=== PATIENT | female | born 1950 | race Caucasian/White ===

== ENCOUNTER → 2016-09-09 | Outpatient (CLI) | payer OTHER, MEDICARE ==
[~2016-09-09] MED LIST: ACETAMINOPHEN650 M5 PO; ALBUTEROL2.5 MG/0.1 INH; ALBUTEROL2.5 MG/0.5 INH; AMBIEN 5 MG TABL5 M1 PO; AMITIZA 24 MCG24 MC1 PO; BACTRIM DS TAB1 EACH PO; BISACODYL SUPP10 MG RECTAL; CALCIUM 600 +1 EAC1 PO; CELEBREX 200 M200 MG PO; CLEOCIN HCL150 MG PO; COLACE 100 MG100 MG PO; ESZOPICLONE3 MG PO; FUROSEMIDE 20 M20 M1 PO; GLYCOLAX POWDER17 G1 PO; HALCION0.25 MG PO; HYDROCODON-ACE1 EAC5 PO; MELOXICAM15 MG PO; MOM PO; MUCINEX600 MG PO; NABUMETONE 500500 M1 PO; NICOTINE TRANSD21 M1 TRANSDERM; NORVASC5 MG PO; NYSTATIN 1100000 U/M; OMEPRAZOLE40 MG PO; ORPHENADRINE C100 M2 PO; OXYCODONE HCL5 M1 PO; PHENERGAN 25 MG25 M1 PO; PREDNISONE 1 MG1 M1 PO; PREDNISONE 10 M10 M1; PROAIR HFA8.5 GM INH; PROVENTIL INH; RESTORIL30 MG PO; RICOLA1 EAC1 PO; SENOKOT-S1 TA1 PO; SPIRIVA INH; SYMBICORT160 MCG/4. INH; TRAMADOL 50 MG50 MG PO; TUDORZA PRESS400 MCG INH; VICODIN HP 10-1 EAC1 PO; VITAMIN D 5050000 I1 PO; VITAMIN D5000 UNIT PO; ZANAFLEX4 MG PO
== END ==
LOC: MRI 10:08
DX: M16.12 Unilateral primary osteoarthritis, left hip (principal); M25.552 Pain in left hip

== ENCOUNTER → 2016-10-08 | Outpatient (CLI) | payer OTHER, MEDICARE | LOC: BC 05:02 | DX: Z12.31 Encounter for screening mammogram for malignant neoplasm of breast (principal) ==

== ENCOUNTER → 2018-02-17 | Outpatient (CLI) | payer OTHER, MEDICARE | LOC: RAD 10:08 | DX: J44.9 Chronic obstructive pulmonary disease, unspecified (principal); J98.4 Other disorders of lung; J84.9 Interstitial pulmonary disease, unspecified; M81.0 Age-related osteoporosis without current pathological fracture; M19.90 Unspecified osteoarthritis, unspecified site ==

== ENCOUNTER → 2018-03-01 | Outpatient (CLI) | payer OTHER, MEDICARE | LOC: CAT 11:55 | DX: J84.9 Interstitial pulmonary disease, unspecified (principal); M81.0 Age-related osteoporosis without current pathological fracture; J44.9 Chronic obstructive pulmonary disease, unspecified; Z87.891 Personal history of nicotine dependence ==

== ENCOUNTER 2018-06-04 13:52 | Inpatient (IN) | payer OTHER, MEDICARE ==
[~2018-06-04] VITALS: Ht 160 cm; Wt 64.9 kg
[2018-06-04 13:53] VITALS: BP 129/75
--- NOTE | 2018-06-04 14:14 | EKG ---
[address] [address] ELECTROCARDIOGRAM REPORT Name: OG MADDOX Room #: [facility]..#: [id number] Admission: Attend Phys: Discharge: Date of : 54 Report #: [id number] THIS REPORT FOR: //name// [facility] ED Test Date: 2018-06-04 Test Time: 14:07:50 Pat Name: OG MADDOX Department: Room: Gender: F [employer]: : 1950 Requested By: Skylar Kaur Order Number: [id number] MD: Hung Nichole Measurements Intervals Oracle Rate: 106 P: 60 MD: 174 QRS: 58 QRSD: 79 T: 38 QT: 350 QTc: 465 Interpretive Statements Sinus tachycardia Probable left atrial enlargement Compared to ECG 10/31/2015 19:26:38 Sinus rhythm no longer present Electronically Signed On 06-04-2018 14:14:51 [employer] by Hung Nichole [email or web address] <ELECTRONICALLY SIGNED> By: Hung Nichole MD 06/04/18 1414 1407 1407 Hung Nichole MD /EPI
[2018-06-04 14:24] LABS: ABSOLUTE NEUTROPHILS 7.9 thou/uL (1.4-8.2); EOSINOPHILS 0.5 % (0.0-3.0); HEMOGLOBIN 10.8 gm/dL (12.0-15.0); LYMPHOCYTES 21.6 % (24.0-44.0); MCH 25.4 pg (26.0-34.0); MCHC 31.6 g/dL (28.0-37.0); MCV 80.3 fL (80.0-100.0); MONOCYTES 6.4 % (1.0-8.0); PLATELET COUNT 204 thou/uL (150-400); POLYS 70.5 % (36.0-66.0); RBC 4.24 mil/uL (4.20-5.00); RDW 18.1 % (10.5-14.5); WBC 11.2 thou/uL (4.0-11.0)
[2018-06-04 14:34] LABS: ANION GAP 14 mmol/L (7-16); BUN 19 mg/dL (7-18); CALCIUM 8.8 mg/dL (8.5-10.1); CHLORIDE 98 mmol/L (98-107); CO2 22 mmol/L (21-32); CREATININE 1.1 mg/dL (0.6-1.0); GLUCOSE 103 mg/dL (74-106); POTASSIUM 4.1 mmol/L (3.5-5.1); SODIUM 134 mmol/L (136-145)
[2018-06-04 14:42] LABS: ALBUMIN 3.6 g/dL (3.4-5.0); SGOT 17 U/L (15-37); SGPT 10 U/L (30-65); TOTAL BILIRUBIN 0.6 mg/dL (<0.1-1.0); TOTAL PROTEIN 7.7 g/dL (6.4-8.2); TROPONIN-I <0.06 ng/mL (<0.06)
[2018-06-04 15:11] LABS: BE(vivo) -2.5 mmol/L (-2 to +3); HCO3 21.8 mmol/L (22.0-26.0); PCO2 36.2 mmHg (35.0-45.0); PO2 63.9 mmHg (80.0-100.0); pH 7.398 (7.360-7.450); sO2 92.6 % (92.0-98.0)
[2018-06-04] MEDS ORDERED: MOBIC15 MG PO (15:29)
[2018-06-04] MEDS ORDERED: SEROQUEL 25 MG25 M1 PO (15:29)
[2018-06-04] MEDS ORDERED: NORVASC5 MG PO (15:29)
[2018-06-04] MEDS ORDERED: OMEPRAZOLE40 MG PO (15:30)
[2018-06-04] MEDS ORDERED: ALBUTEROL2.5 MG/0.1 INH (15:31)
[2018-06-04] MEDS ORDERED: PROAIR HFA8.5 GM INH (15:32)
[2018-06-04 15:33] VITALS: BP 131/69
[2018-06-04 16:14] VITALS: BP 121/58
[2018-06-04 16:59] LABS: TSH 4.113 uIU/mL (0.358-3.740)
--- NOTE | 2018-06-04 18:28 | NUR ---
patient admit to unit at 1630. a/o x4. pleasant. up ad ne. sob with exertion. c/o generlized pain. pain med give. ble edema 1+. will keep monitor.
[2018-06-04 19:33] VITALS: BP 134/82
[2018-06-04 23:32] VITALS: BP 106/70
--- NOTE | 2018-06-05 03:20 | NUR ---
ASSUMED PT CARE AROUND 1900. A&OX4. C/O GENERALIZED, CHRONIC PAIN. PAIN MEDICATION GIVEN ORDERED FOR PAIN. PT SLEPT MOST OF THE NIGHT. RESP EVEN AND UNLABORED. O2 SATS STABLE ON 4L NC. UP AD ROMINA IN THE ROOM. VSS. PROGRESSING SLOWLY TOWARD POC GOALS. WILL CONTINUE TO MONITOR FURTHER.
[2018-06-05 03:51] VITALS: BP 90/53
[2018-06-05 04:58] LABS: BE(vivo) -2.5 mmol/L (-2 to +3); HCO3 23.8 mmol/L (22.0-26.0); PCO2 47.8 mmHg (35.0-45.0); PO2 64.3 mmHg (80.0-100.0); sO2 90.6 % (92.0-98.0)
[2018-06-05 04:59] LABS: pH 7.315 (7.360-7.450)
[2018-06-05 05:39] LABS: ABSOLUTE NEUTROPHILS 5.4 thou/uL (1.4-8.2); BASOPHILS 0.3 % (0.0-2.0); HEMATOCRIT 29.7 % (37.0-47.0); HEMOGLOBIN 9.6 gm/dL (12.0-15.0); MCH 25.9 pg (26.0-34.0); MCHC 32.4 g/dL (28.0-37.0); MCV 79.9 fL (80.0-100.0); MONOCYTES 0.9 % (1.0-8.0); PLATELET COUNT 159 thou/uL (150-400); POLYS 92.8 % (36.0-66.0); RBC 3.71 mil/uL (4.20-5.00); RDW 18.5 % (10.5-14.5); WBC 5.8 thou/uL (4.0-11.0)
[2018-06-05 05:48] LABS: CALCIUM 8.6 mg/dL (8.5-10.1); CREATININE 0.9 mg/dL (0.6-1.0); MAGNESIUM 2.1 mg/dL (1.8-2.4); POTASSIUM 4.5 mmol/L (3.5-5.1)
[2018-06-05 07:30] VITALS: BP 109/72
[2018-06-05 12:12] VITALS: BP 135/72
[2018-06-05 15:50] VITALS: BP 123/72
--- NOTE | 2018-06-05 16:42 | NUR ---
care of pt assumed this am @ ~0700. pt noted to be fussy, restless and verbalizing numerous compliants this am re: the lack of sleep she received last night, her frustration w/ dr. mack and his statement that "he thinks i am addicted to pain medication, i am not!" and the discomfort in her ribs that she has from coughing so much. pt's cough was non productive this am but has become productive as the day has progressed. pt on o2 @ 4lt nc today (baseline of 2lt nc at home). pt noted to removed o2 to ambulate to the bthrm to void and forget to put back on once returning to bed, reminders needed. pt co of constant soa today, worse when ambulating back from the bthrm w/o o2, pt encourage to wear her o2 to bthrm until she is feeling and breathing better. pt w/ consistant request ~ every 4 hours for pain medication for chronic generalized discomfort/pain today. pt received an echo today. pt aware of need for stool specimen. pt w/ a poor appetite for food today but a good po fluid intake. pt request vic hose to help w/ her ble edema.
[2018-06-05 19:35] VITALS: BP 105/58
[2018-06-05 20:00] VITALS: BP 112/64
[2018-06-06 03:35] VITALS: BP 111/69
--- NOTE | 2018-06-06 04:54 | NUR ---
ASSUMED PT CARE AROUND 1900. A&OX4. PT C/O GENERALIZED PAIN AND ALSO SOME RIBS PAIN DUE TO COUGHING. ALTHOUGH PT DENIES BEING DEPENDENT ON NARCOTICS, SHE CONSISTENTLY CALLS OUT EVERY 3-4 HOURS FOR HER PAIN MEDICATION. PT SLEPT PART OF THE NIGHT. RESP EVEN AND UNLABORED. SHE DOES HAVE SOME PERIODS OF ANXIETY AND SOA WITH COUGHING FITS. PROGRESSING SLOWLY TOWARD POC GOALS. WILL CONTINUE TO MONITOR FURTHER.
[2018-06-06 05:58] LABS: HEMATOCRIT 30.9 % (37.0-47.0); HEMOGLOBIN 9.8 gm/dL (12.0-15.0); MCH 25.6 pg (26.0-34.0); MCHC 31.7 g/dL (28.0-37.0); MCV 80.8 fL (80.0-100.0); RBC 3.83 mil/uL (4.20-5.00); RDW 18.4 % (10.5-14.5); WBC 18.8 thou/uL (4.0-11.0)
[2018-06-06 06:10] LABS: CALCIUM 8.6 mg/dL (8.5-10.1); CREATININE 1.1 mg/dL (0.6-1.0)
[2018-06-06 07:43] VITALS: BP 102/62
[2018-06-06 11:18] VITALS: BP 108/58
--- NOTE | 2018-06-06 15:24 | HC ---
[facility] [place] [address] CONSULTATION Name: OG MADDOX Room #: 355-P ADM IN M.R.#: [id number] Admission: 06/04/18 Attend Phys: Kory Castañeda MD Discharge: Date of : 54 Report #: [id number] THIS REPORT FOR: //name// CC: Maria Elena Gamez PRIMARY CARE PHYSICIAN: Dr. Maria Elena Lopze. REFERRING PHYSICIAN: Dr. Castañeda. REASON FOR REFERRAL: Dyspnea. HISTORY OF PRESENT ILLNESS: The patient is a 67-year-old white female with multiple medical problems, presents to the Emergency Room with progressive dyspnea, productive cough for the last one week. Pulmonary consultation was requested. The patient is followed longitudinally by Dr. Enrique Gamez. She has a long history of rheumatoid arthritis. She is also known to have chronic interstitial lung disease for the past several years. She is also followed for COPD. Baseline FEV1 runs around 1.39 liters, 62% predicted, FVC measuring 1.69 liters, 60% predicted, FEV1/FVC ratio at 82%. She is felt to have COPD, though PFT shows restrictive defect without evidence of airflow obstruction as mentioned above. She is also felt to have severe chronic pain related to fibromyalgia. She is on chronic narcotics. Her narcotic is managed by Dr. Maria Elena Lopez. She is normally on 2 liters of O2. For the last week with increasing symptoms she has increased the O2 to 4 liters. The patient continues to smoke about 1-1/2 packs a day. Otherwise, denies any recent nausea, vomiting, diarrhea. PAST MEDICAL HISTORY: Long history of rheumatoid arthritis, she is followed by Rheumatology, tobacco abuse, chronic interstitial lung disease, thyroid cancer status post thyroidectomy, status post radiation therapy, gastric ulcers, status post partial gastrectomy, gastroesophageal reflux disease, tumor involving the right neck status post resection, Ward esophagus, chronic respiratory failure on 2 liters of O2, irritable bowel syndrome, epilepsy, off medication for a number of years, chronic bilateral lower extremity edema, osteoporosis. PAST SURGICAL HISTORY: As mentioned above including herniorrhaphy, multiple knee surgeries, tonsillectomy, multiple tooth extractions, partial hysterectomy, bilateral salpingo-oophorectomy, right thumb surgery, carpal tunnel surgery [address] [address] CONSULTATION Name: OG MADDOX Room #: 355-P ADM IN M.R.#: [id number] Admission: 06/04/18 Attend Phys: Kory Castañeda MD Discharge: Date of : 54 Report #: [id number] bilaterally. ALLERGIES: ASPIRIN, POTASSIUM CHLORIDE. HOME MEDICATIONS: Reviewed include Norvasc, Mobic, Seroquel, ProAir, Lasix, hydrocodone, Zanaflex, nebulized albuterol, tramadol, Symbicort 160 mcg 2 puffs twice a day, Phenergan, Tudorza 1 puff twice a day, Amitiza. She is also on hydrocodone 10/325 one tablet 4 hours p.r.n. pain. FAMILY HISTORY: Notable for scotoma in the mother who at age of 73. Father at the age of 73. He had a history of lung cancer. SOCIAL HISTORY: She has continued to smoke about 1 pack a day for the last 50 years. Denies any alcohol use. REVIEW OF SYSTEMS: Notable for chronic pain. Otherwise, 10-point system review negative. PHYSICAL EXAMINATION: GENERAL: She is awake, alert, in no apparent distress. VITAL SIGNS: Temperature is 98 degrees Fahrenheit, pulse is 100, respiratory rate is 28, blood pressure is 135/72 mmHg, saturation 95%. HEENT: Normocephalic, atraumatic. NECK: Supple, negative lymphadenopathy or thyromegaly. CHEST: Breath sounds are coarse bilaterally. Mild expiratory wheezes. CARDIOVASCULAR: Normal S1, S2. There is no murmur or gallop. There is no JVD. There is no carotid bruit. Pulses are 2+/4+ bilaterally. ABDOMEN: Soft, nontender, no organomegaly or masses felt. GENITOURINARY: Deferred. RECTAL: Deferred. EXTREMITIES: There is no edema, cyanosis or clubbing. DERMATOLOGIC: She is quite sensitive to touch resulting in severe pain including chronic myalgic or myalgias. LABORATORY DATA: CT chest and chest x-ray reviewed. CT chest angiogram shows no evidence of pulmonary embolus. It did show presence of moderate bilateral patchy ground glass opacity, patchy infiltrates. Chest x-ray shows similar changes except for mildly elevated left hemidiaphragm, with increased gas pattern involving the large colon. Influenza A and B swab is negative. Procalcitonin level of 0.18. Electrolytes are normal. Creatinine is normal. Liver enzymes are grossly unremarkable. WBC 11,200 without significant bandemia. Arterial blood gas on admission revealed pH 7.39, pCO2 of 36, pO2 of 63 on room air. Albumin is 3.6. IMPRESSION: 1. Progressive dyspnea and cough in this 67-year-old white female. She has had [facility] [place] [address] CONSULTATION Name: OG MADDOX Room #: 355-P ADM IN [place].#: [id number] Admission: 06/04/18 Attend Phys: Kory Castañeda MD Discharge: Date of : 54 Report #: [id number] a productive cough of purulent sputum. She has a history of rheumatoid arthritis along with chronic infiltrates. She smokes. She is felt to have chronic obstructive pulmonary disease. Suspect lower respiratory tract infection. Cannot rule out viral syndrome. 2. Chronic interstitial lung disease. Chest CT shows ground glass opacity. She is known to have infiltrates for the last few years. With a history of rheumatoid arthritis, this may be related to rheumatoid arthritis such as usual interstitial pneumonia. She does not meet the definitive criteria at this time. Cannot rule out pneumonia. 3. Long history of rheumatoid arthritis as mentioned above. 4. Probable chronic obstructive pulmonary disease, though previous spirometries failed to show any airflow obstruction. The patient continues to smoke. She does have wheezes on today's examination. 5. Chronic pain syndrome, fibromyalgia, on chronic narcotics. 6. History of seizure disorder. 7. Hypertension. 8. History of irritable bowel syndrome. 9. Ward esophagus. 10. Gastroesophageal reflux disease. 11. History of peptic ulcer disease. 12. Osteoporosis. RECOMMENDATION: Agree with broad spectrum antibiotics, bronchodilators. Would also suggest corticosteroids given the presumed COPD. DVT and GI prophylaxis recommended. In regards to possible interstitial lung disease, will address this in the outpatient setting with Dr. Gamez whom she follows longitudinally. Thank you for the consultation. <ELECTRONICALLY SIGNED> By: Quintin Zavala MD 06/06/18 1524 1402 Quintin Zavala MD /samira
[2018-06-06 16:39] VITALS: BP 115/61
--- NOTE | 2018-06-06 18:01 | NUR ---
ASSUMED PATIENT CARE 0700. A/O 4. PLEASANT. ASKING PAIN MED Q4H. UP AD ROMINA. ON RA AT THIS TIME. PROGRESSING TOWARDS POC GOALS.
[2018-06-06 19:35] VITALS: BP 127/60
[2018-06-07 03:45] VITALS: BP 118/68
[2018-06-07 04:18] LABS: ABSOLUTE NEUTROPHILS 15.9 thou/uL (1.4-8.2); BASOPHILS 0.1 % (0.0-2.0); HEMATOCRIT 29.6 % (37.0-47.0); HEMOGLOBIN 9.4 gm/dL (12.0-15.0); LYMPHOCYTES 2.1 % (24.0-44.0); MCH 25.5 pg (26.0-34.0); MCHC 31.9 g/dL (28.0-37.0); MONOCYTES 1.6 % (1.0-8.0); PLATELET COUNT 225 thou/uL (150-400); POLYS 96.2 % (36.0-66.0); RDW 17.9 % (10.5-14.5); WBC 16.5 thou/uL (4.0-11.0)
--- NOTE | 2018-06-07 04:39 | NUR ---
ASSUMED PT CARE AROUND 1900. A&OX4. C/O GENERALIZED PAIN. PT STILL CALLS OUT ROUGHLY EVERY 4 HOURS FOR PAIN MEDS BUT HER PAIN SEEMS BETTER CONTROLLED OVERALL THIS SHIFT. PT SLEPT MOST OF THE NIGHT. RESP EVEN AND UNLABORED. VSS. O2 SATS STABLE ON 3L NC. UP AD ROMINA AROUND THE ROOM. PROGRESSING TOWARD POC GOALS. WILL CONTINUE TO MONITOR FURTHER.
[2018-06-07 04:51] LABS: CALCIUM 8.6 mg/dL (8.5-10.1); MAGNESIUM 2.2 mg/dL (1.8-2.4); POTASSIUM 3.9 mmol/L (3.5-5.1)
[2018-06-07 08:07] VITALS: BP 97/59
[2018-06-07 12:03] VITALS: BP 122/59
[2018-06-07 14:58] VITALS: BP 121/58
--- NOTE | 2018-06-07 15:41 | NUR ---
ASSESSMENT: CM REVIEWED CHART AND MET WITH PATIENT AT THE BEDSIDE. PT REPORTS THAT SHE LIVES AT HOME WITH HER . PT STATES SHE HAS A FEW STEPS TO ENTER HER HOME WITH HANDRAILS. PT REPORTS ONCE INSIDE ALL HER NEEDS ARE ON ONE LEVEL INCLUDING HER BEDROOM BUT REPORTS SHE DOES HAVE 14 STEPS WITH HANDRAILS TO THE BASEMENT WITH LAUNDRY AND 14 STEPS WITH HANDRAILS TO THE SECOND FLOOR. PT STATES SHE AMBULATES INDEPENDENTLY BUT DOES HAVE A CANE AND WHEELCHAIR AT HOME. PT REPORTS SHE HAS NOT HAD HH IN THE PAST BUT FEELS SHE NEEDS IT. PT REPORTS NO PREFERENCE OF HH, CM NOTIFIED [facility]. PT REPORTS SHE IS ALSO NEEDING HELP WITH CLEANING AND CM DISCUSSED HH DOES NOT OFFER THOSE SERVICES BUT CM COULD PROVIDE PATIENT FOR PRIVATE DUTY AGENCIES. CM WILL PROVIDE PATIENT WITH [employer] FOR [employer] AND LIST OF PRIVATE DUTY AGENCIES. CM WILL CONTINUE TO FOLLOW TO ASSIST NEEDED.
--- NOTE | 2018-06-07 16:41 | NUR ---
ASSUMED PATIENT CARE AT 0700. A/O X4. PROGRESSING TOWARDS POC GOALS. TRANSFER TO 223 NOW.
--- NOTE | 2018-06-07 16:51 | NUR ---
PATIENT TRANSFERRED TO UNIT APPROX 1640 FROM ROOM 355. ORIENTED TO UNIT. PATIENT SETTLED IN ROOM WITH CALL LIGHT WITHIN REACH.
[2018-06-07 17:02] VITALS: BP 122/65
--- NOTE | 2018-06-08 04:04 | NUR ---
ALERT AND ORIENTED X4. RESP SHALLOW AND DIM. ACCUCHECK WAS 142 AND NO INSULIN WAS REQUIRED. UP AD ROMINA. O2 AT 3LITER. PAIN MED GIVEN. SLEPT OFF AND ON DURING NIGHT.
[2018-06-08 07:36] VITALS: BP 123/75
--- NOTE | 2018-06-08 07:40 | NUR ---
ASSUMED PT CARE AT 0700. ASSESSMENT COMPLETE AT 0720 AND IS CHARTED. VITAL SIGNS STABLE. BLOOD GLUCOSE 126. PT REPORTS PAIN FROM FIBROMYALGIA RATED 5/10. SKIN VERY TENDER TO TOUCH. PT APPEARS IN NO RESPIRATORY DISTRESS, WHEEZES UPON EXPIRATION, CRACKLES ON INSPIRATION. O2 AT 2L PER NC SHE IS AT HOME. PT IS ALERT/ORIENTED X4, PLEASANT AND COOPERATIVE. NO NEW CONCERNS AT THIS TIME. WILL CONTINUE WITH CURRENT CARE.
--- NOTE | 2018-06-08 08:08 | 2DMMODE ---
[facility] [place] [address] 2 D/M-MODE ECHOCARDIOGRAM Name: OG MADDOX Room #: 220-P ADM IN M.R.#: [id number] Admission: 06/04/18 Attend Phys: Kory Castañeda MD Discharge: Date of : 54 Date of Service: 06/08/18 0807 Report #: [id number] THIS REPORT FOR: //name// APPROVED REPORT Study performed: 06/07/2018 15:25:57 EXAM: Comprehensive 2D, Doppler, and color-flow Echocardiogram with contrast Patient Location: Bedside Room #: 355 Status: routine BSA: 1.68 HR: 100 bpm BP: 121/58 mmHg Rhythm: NSR Other Information Study Quality: FairTechnically Limited Indications Pulmonary Hypertension Echo Enhancing Agent Indication: Endocardial border delineation Agent(s) / Amount(s) Used: Optison 7 cc 2D Dimensions IVSd: 10.36 (7-11mm) LVOT Diam: 19.18 (18-24mm) LVDd: 40.93 mm PWd: 9.59 (7-11mm) Ascending Ao: 34.38 (22-36mm) LVDs: 20.58 (25-40mm) Aortic Root: 33.42 mm IVC: 23.00 mm Volumes Left Atrial Volume (Systole) Single Plane 4CH: 32.92 mL Single Plane 2CH: 30.47 mL LA ESV Index: 21.48 mL/m2 Aortic Valve AoV Peak Rolo.: 1.02 m/s AO Peak Gr.: 4.16 mmHg LVOT Max P.84 mmHg LVOT Max V: 1.10 m/s CONRADO Vmax: 3.12 cm2 Mitral Valve [facility] [address] [place] [address] 2 D/M-MODE ECHOCARDIOGRAM Name: OG MADDOX Room #: 220-P [facility] IN M.R.#: [id number] Admission: 06/04/18 Attend Phys: Kory Castañeda MD Discharge: Date of : 54 Date of Service: 06/08/18 0807 Report #: [id number] E/A Ratio: 1.4 MV Decel. Time: 151.01 ms MV E Max Rolo.: 1.13 m/s MV A Rolo.: 0.78 m/s MV PHT: 43.79 ms IVRT: 76.12 ms Pulmonary Valve PV Peak Rolo.: 0.82 m/s PV Peak Gr.: 2.69 mmHg Pulmonary Vein P Vein S: 0.51 m/s P Vein A: 0.45 m/s P Vein D: 0.84 m/s P Vein A Dur.: 124.6 msec P Vein S/D Ratio: 0.61 Tricuspid Valve TR Peak Rolo.: 0.90 m/s RAP Estimate: 10.00 mmHg TR Peak Gr.: 3.27 mmHg Left Ventricle The left ventricle is normal size. There is normal left ventricular wall thickness. The left ventricular systolic function is normal. The left ventricular ejection fraction is within the normal range. LVEF is 60-65%. Moderate diastolic dysfunction is present (pseudonormal filling). Atria The left atrium size is normal. The right atrium size is normal. Aortic Valve The aortic valve is not well visualized. No aortic regurgitation is present. There is no evidence of aortic stenosis. Mitral Valve The mitral valve is normal in structure. Trace mitral regurgitation. No evidence of mitral valve stenosis. Tricuspid Valve Tricuspid valve is not well visualized. Trace tricuspid regurgitation. Unable to assess PA pressure. Pulmonic Valve Pulmonic valve is not well visualized. There is no pulmonic valvular regurgitation. [address] [address] 2 D/M-MODE ECHOCARDIOGRAM Name: OG MADDOX Room #: 220-P [facility] IN ..#: [id number] Admission: 06/04/18 Attend Phys: Kory Castañeda MD Discharge: Date of : 54 Date of Service: 06/08/18 0807 Report #: [id number] Great Vessels The aortic root is normal in size. The ascending aorta is normal in size. IVC is dilated and collapses <50% with inspiration. Pericardium no gross visualization of effusion <Conclusion> The left ventricle is normal size. The left ventricle is normal size. LVEF is 60-65%. The aortic valve is not well visualized. The mitral valve is normal in structure. Trace mitral regurgitation. Tricuspid valve is not well visualized. Pulmonic valve is not well visualized. no gross visualization of effusion <ELECTRONICALLY SIGNED> By: Jorge Flanagan MD 06/08/18806 6 6 Jorge Flanagan MD /INF
[2018-06-08] MEDS ORDERED: PREDNISONE 20 M20 MG PO (08:53)
[2018-06-08] MEDS ORDERED: CEFUROXIME500 MG PO (08:53)
[2018-06-08 11:11] VITALS: BP 123/75
[2018-06-08] MEDS ORDERED: TESSALON PERLE100 MG PO (11:38)
--- NOTE | 2018-06-08 13:17 | NUR ---
DISCHARGE NOTE: SW reviewed chart and spoke with nursing and attending physician. Pt was transferred to [facility] from and is medically stable for discharge home today. No orders for HH written. Pt will discharge home. Pt has portable O2 tank at bedside for transport home. No SW discharge needs identified at this time, but is available to assist should needs arise.
--- NOTE | 2018-06-08 15:33 | NUR ---
DISMISSED PT IN STABLE CONDITION TO HOME VIA WHEELCHAIR WITH VOLUNTEER.
== END 2018-06-08 15:34 | disposition home or self-care (01) | DRG 871 ==
LOC: ER 13:52 → 3W 15:06 → EROBS 15:06 → SICU 15:06 → 3W 16:15 → SICU 06-07 16:38 → ENTRNSPT 06-08 14:25 → SICU 06-08 15:34
PROVIDERS: Internal Medicine Pulmonary Disease; Nurse Practitioner; Nurse Practitioner Family; ADMIT Internal Medicine
DX: A41.9 Sepsis, unspecified organism (principal); J96.21 Acute and chronic respiratory failure with hypoxia; N17.9 Acute kidney failure, unspecified; J44.1 Chronic obstructive pulmonary disease with (acute) exacerbation; J44.0 Chronic obstructive pulmonary disease with (acute) lower respiratory infection; K21.9 Gastro-esophageal reflux disease without esophagitis; M06.9 Rheumatoid arthritis, unspecified; K27.9 Peptic ulcer, site unspecified, unspecified as acute or chronic, without hemorrhage or perforation; G89.4 Chronic pain syndrome; J20.9 Acute bronchitis, unspecified; M81.0 Age-related osteoporosis without current pathological fracture; K58.9 Irritable bowel syndrome, unspecified; R19.7 Diarrhea, unspecified; G40.909 Epilepsy, unspecified, not intractable, without status epilepticus; I10 Essential (primary) hypertension; M79.7 Fibromyalgia; K22.70 Barrett's esophagus without dysplasia; F17.210 Nicotine dependence, cigarettes, uncomplicated; Z85.850 Personal history of malignant neoplasm of thyroid; Z92.3 Personal history of irradiation; Z99.81 Dependence on supplemental oxygen; Z90.710 Acquired absence of both cervix and uterus; Z87.01 Personal history of pneumonia (recurrent); Z79.82 Long term (current) use of aspirin; Z88.6 Allergy status to analgesic agent; Z88.8 Allergy status to other drugs, medicaments and biological substances; Z88.5 Allergy status to narcotic agent; Z90.722 Acquired absence of ovaries, bilateral; Z79.899 Other long term (current) drug therapy; Z87.11 Personal history of peptic ulcer disease
CPT/HCPCS: 10879; 15002

== ENCOUNTER → 2019-07-13 | Outpatient (CLI) | payer OTHER, MEDICARE ==
[~2019-07-13] VITALS: Ht 160 cm; Wt 59.0 kg
[~2019-07-13] MED LIST changes: +CEFUROXIME500 MG PO; +CELEBREX100 MG/1 C PO; +KEPPRA 500 MG500 M1 PO; +MOBIC15 MG PO; +PHENERGAN 25 MG25 MG PO; +PREDNISONE 20 M20 MG PO; +SEROQUEL 25 MG25 M1 PO; +TESSALON PERLE100 MG PO
--- NOTE | ~2019-07-13 | P ---
[facility] [place] [address] PROCEDURE REPORT Name: OG MADDOX Room #: REG [facility].#: [id number] Admission: 07/13/19 Attend Phys: Florentino Salinas Discharge: Date of : 54 Report #: [id number] THIS REPORT FOR: cc: Maria Elena Lopez,Florentino Coronel MD ~ CC: Florentino Lopez DO DATE OF SERVICE: 07/13/2019 PROCEDURE PERFORMED: Colonoscopy with biopsies. HISTORY OF PRESENT ILLNESS: The patient is a 68-year-old female who reports episode of bright red blood per rectum recently. No further episodes. No family history of colon cancer. Unsure when her last colonoscopy was performed. DESCRIPTION OF PROCEDURE: The risks and benefits of the procedure were explained to the patient, those risks including but not limited to bleeding, perforation and the risk of sedation. She understood these risks and gave informed consent. Sedation was given using propofol per anesthesia. Next, a digital rectal exam was initially performed, which was normal. Next, using a standard Olympus colonoscope, the scope was placed in the patient's anus and advanced under direct vision to the cecum. The overall prep was good in most areas. There were a few small areas where visualization was somewhat decreased due to fair prep. The cecum and ileocecal valve were normal in appearance. A 4 mm sessile polyp was noted in the ascending colon. This was removed with cold forceps. Transverse and descending colon were normal. In the sigmoid colon, a 5 mm sessile polyp also removed with cold forceps. Rectal mucosa was normal. On retroflexion, no abnormalities were noted. Close examination of the anal canal showed a single external hemorrhoid, nonbleeding. Scope was then withdrawn and the procedure terminated. The patient tolerated the procedure well. IMPRESSION: 1. Two small colonic polyps. 2. External hemorrhoids, likely source of recent bright red blood per rectum. RECOMMENDATIONS: 1. Await biopsy results. 2. Repeat colonoscopy in 5 years. 3. If bleeding recurs, would recommend Analpram on a p.r.n. basis. [facility] [address] [place] [address] PROCEDURE REPORT Name: OG MADDOX Room #: REG [facility]#: [id number] Admission: 07/13/19 Attend Phys: Florentino Salinas Discharge: Date of : 54 Report #: [id number] Thank you for allowing me to participate in her care. By: 1138 2111 Florentino Vernon MD /nt
--- NOTE | ~2019-07-13 | P ---
[facility] [place] [address] PROCEDURE REPORT Name: OG MADDOX Room #: REG [facility] Melinda.#: [id number] Admission: 07/13/19 Attend Phys: Florentino Salinas Discharge: Date of : 54 Report #: [id number] THIS REPORT FOR: cc: Maria Elena Lopez,Florentino Coronel MD ~ CC: Florentino Lopez DO DATE OF SERVICE: 07/13/2019 PROCEDURE PERFORMED: Upper endoscopy with biopsies and esophageal dilation. HISTORY OF PRESENT ILLNESS: The patient is a 68-year-old female with history of Ward's esophagus, gastroesophageal reflux disease, on Prilosec 40 b.i.d., also complains of dysphagia. Plan is for upper endoscopy. DESCRIPTION OF PROCEDURE: The risks and benefits of the procedure were explained to the patient, those risks including but not limited to bleeding, perforation, the risk of sedation. She understood these risks and gave informed consent. Sedation was given using propofol per anesthesia. Next, using a standard Olympus upper endoscope, the scope was placed in the patient's mouth and advanced under direct vision through the esophagus, stomach and into the second portion of the duodenum. The larynx was normal in appearance. The upper and mid esophagus was normal. In the distal esophagus, a 5-6 cm segment of Ward's esophagus was noted. Several biopsies were obtained. No evidence of stricture, no evidence of erosive esophagitis. Upon entering the stomach, a small hiatal hernia was noted. Overall, the gastric mucosa was normal. The pylorus was normal and patent. The duodenal bulb, first and second portion were all normal. The scope was then brought back up into the patient's stomach and a Savary guidewire was inserted through the scope, leaving the guidewire in place as the scope was then withdrawn. Next, a 51-Tajik Savary dilation of the esophagus was then performed without difficulty. The wire and dilator were removed. The scope was reintroduced into the patient's stomach. There was no evidence of mucosal tear after dilation. The scope was then withdrawn and the procedure terminated. The patient tolerated the procedure well. IMPRESSION: 1. Ward's esophagus, biopsies obtained. 2. Small hiatal hernia. 3. Otherwise, normal upper endoscopy. RECOMMENDATIONS: 1. Await biopsy results. 2. Continue b.i.d. PPI therapy. [address] [address] PROCEDURE REPORT Name: OG MADDOX Room #: REG [facility] Nba#: [id number] Admission: 07/13/19 Attend Phys: Florentino Salinas Discharge: Date of : 54 Report #: [id number] 3. Observe the patient post-dilation. Thank you for allowing me to participate in her care. By: 1102 1244 Florentino Vernon MD /samira
--- NOTE | 2019-07-14 17:07 | PATH ---
[facility] [place] [address] PATHOLOGY RPT PROCEDURE Name: AMIRA MADDOX Room #: [facility] M.R.#: [id number] Admission: 07/13/19 Date of : 54 Discharge: Report #: [id number] Path Case #: [id number] [facility] Accession Number: [id number] . 01 Material submitted: . PART A: esophagus - BX OF DISTAL ESOPHAGUS. Modifiers: distal PART B: colon - POLYP AT ASCENDING COLON. Modifiers: ascending PART C: sigmoid colon - POLYP AT SIGMOID COLON . 01 Clinical history: . History of mendoza's, blood in stool, dysphagia, colon polyps, hemorrhoids . 02 Diagnosis: A. Gastroesophageal mucosa, distal esophagus, endoscopic biopsy: - Specialized columnar epithelium (gastric cardia-type mucosa) with intestinal metaplasia, consistent with Mendoza's metaplasia. - Negative for dysplasia. - Focal squamous mucosa with mild esophagitis. . B. Polyp, at ascending colon, endoscopic biopsy: - Tubular adenoma. - Negative for high-grade dysplasia. . C. Polyp, at sigmoid colon, endoscopic biopsy: - Tubular adenoma. - Negative for high-grade dysplasia. (IUV:pit 07/14/2019) QTP 07/14/2019 1341 Local . 02 Electronically signed: . Britney Sharma MD, Pathologist NPI- [id number] . 01 Gross description: . A. The specimen is received in formalin, labeled "Sweet, Amira", "biopsy of distal esophagus". Received are 3 segments of pale ferreira-white soft tissue ranging in size from 0.1 cm to 0.2 cm. The specimen is entirely submitted in cassette A1. . B. The specimen is received in formalin, labeled "Sweet Amira", "ascending colon polyp". Received are 2 segments of polypoid, glistening pale ferreira soft tissue measuring 0.2 and 0.2 cm. The specimen is entirely submitted in cassette B1. . C. The specimen is received in formalin, labeled "Sweet, Amira", "sigmoid colon polyp". Received are 2 segments of glistening, slightly polypoid pale ferreira soft tissue measuring 0.2 and 0.3 cm. The specimen is [facility] [address] [place] [address] PATHOLOGY RPT PROCEDURE Name: VARSHAAMIRA ASHLEY Room #: REG [facility].#: [id number] Admission: 07/13/19 Date of : 54 Discharge: Report #: [id number] Path Case #: [id number] entirely submitted in cassette C1.(SNA; 07/13/2019) YANY/DARCIE 07/13/2019 1742 Local . 02 Pathologist provided ICD-10: K22.70, K20.9, D12.2, D12.5 . 02 CPT . 129137, 711281, [id number] Specimen Comment: A courtesy copy of this report has been sent to [phone] Specimen Comment: Report sent to Performed at: [address], [place] [id number] MD Bill Heath MD Phone: [phone] Performed at: [address] [id number] MD Britney Sharma MD Phone: [phone]
== END | disposition home or self-care (01) ==
LOC: GI 08:31
DX: K62.5 Hemorrhage of anus and rectum (principal); D12.2 Benign neoplasm of ascending colon; D12.5 Benign neoplasm of sigmoid colon; K64.4 Residual hemorrhoidal skin tags; K22.70 Barrett's esophagus without dysplasia; K21.0 Gastro-esophageal reflux disease with esophagitis; R13.19 Other dysphagia; J43.9 Emphysema, unspecified; G40.909 Epilepsy, unspecified, not intractable, without status epilepticus; M79.7 Fibromyalgia; M06.9 Rheumatoid arthritis, unspecified; M81.0 Age-related osteoporosis without current pathological fracture; F17.210 Nicotine dependence, cigarettes, uncomplicated; Z98.890 Other specified postprocedural states; Z79.899 Other long term (current) drug therapy; Z85.850 Personal history of malignant neoplasm of thyroid; Z88.8 Allergy status to other drugs, medicaments and biological substances
CPT/HCPCS: 62110; 62900

== ENCOUNTER 2019-10-11 01:18 | Inpatient (IN) | payer OTHER, MEDICARE ==
[~2019-10-11] VITALS: Ht 160 cm; Wt 64.4 kg
[2019-10-11] VITALS (7 sets, daily range): BP systolic 116–142; BP diastolic 58–78
[2019-10-11] MEDS ORDERED: TEMAZEPAM30 MG PO (01:41)
[2019-10-11 02:11] LABS: ABSOLUTE NEUTROPHILS 17.2 thou/uL (1.4-8.2); BASOPHILS 0.1 % (0.0-2.0); HEMATOCRIT 36.4 % (37.0-47.0); HEMOGLOBIN 10.9 gm/dL (12.0-15.0); MCH 22.7 pg (26.0-34.0); MCHC 30.1 g/dL (28.0-37.0); MCV 75.4 fL (80.0-100.0); MONOCYTES 5.9 % (1.0-8.0); PLATELET COUNT 285 thou/uL (150-400); RBC 4.83 mil/uL (4.20-5.00); RDW 17.8 % (10.5-14.5); WBC 19.1 thou/uL (4.0-11.0)
[2019-10-11 02:13] LABS: CREATININE 0.9 mg/dL (0.6-1.0); POTASSIUM 4.2 mmol/L (3.5-5.1)
[2019-10-11 02:17] LABS: APTT 29.8 Seconds (24.5-32.8); INR 1.2; PROTIME 11.8 Seconds (9.3-11.4)
[2019-10-11 02:23] LABS: ALBUMIN 3.3 g/dL (3.4-5.0); MAGNESIUM 2.1 mg/dL (1.8-2.4); TOTAL BILIRUBIN 1.1 mg/dL (<0.1-1.0); TOTAL PROTEIN 7.6 g/dL (6.4-8.2); TROPONIN-I 0.16 ng/mL (<0.06)
[2019-10-11 03:05] LABS: BE(vivo) -1.6 mmol/L (-2 to +3); HCO3 21.7 mmol/L (22.0-26.0); PCO2 31.7 mmHg (35.0-45.0); PO2 56.7 mmHg (80.0-100.0); pH 7.453 (7.360-7.450); sO2 91.2 % (92.0-98.0)
--- NOTE | 2019-10-11 06:03 | NUR ---
Admission history and assessments completed. Careplan initiated. Oxygen currently at 4L/NC sat 93%.
--- NOTE | 2019-10-11 07:56 | EKG ---
[facility] [place] [address] ELECTROCARDIOGRAM REPORT Name: OG MADDOX Room #: 361-P ADM IN M.R.#: [id number] Admission: 10/11/19 Attend Phys: Abhijeet Nolasco MD Discharge: Date of : 54 Report #: [id number] THIS REPORT FOR: cc: Maria Elena Lopez Christine L. DO Lundgren, Craig H. MD [facility] ~ THIS REPORT FOR: //name// [facility] ED Test Date: 2019-10-11 Test Time: 01:53:10 Pat Name: OG MADDOX Department: Room: [facility] Gender: F [employer]inkler Truck Driver: KENTRELL : 1950 Requested By: Kristopher Gaspar Order Number: [id number] MD: Michael Anderson Measurements Intervals [place] Rate: 109 P: 48 NC: 171 QRS: -20 QRSD: 74 T: 100 QT: 320 QTc: 431 Interpretive Statements Sinus tachycardia Borderline left axis deviation Borderline low voltage, extremity leads Nonspecific T wave abnormality Compared to ECG 06/04/2018 14:07:50 Nonspecific T wave abnormality is now present Electronically Signed On 10-11-2019 7:54:18 CDT by Michael Anderson [email or web address] <ELECTRONICALLY SIGNED> By: Michael Anderson MD, [facility] 10/11/19 [phone] 0153 Michael Anderson MD, FAC /EPI
--- NOTE | 2019-10-11 13:45 | NUR ---
INITIAL ASSESSMENT: Received consult. MINA reviewed chart and spoke with nursing and attending physician. Pt was admitted from home due to hypoxia/exacerbation of COPD. Pt is in Enhanced Isolation to r/o COVID-19. Pt's first test is negative. Repeat test ordered. MINA spoke with pt via phone. Introduced role of SW. Pt is alert/orientated x 4. Pt reports she lives at home with her . Prior to admission, pt was independent with ADLs. Pt does have a cane and w/c at home. Pt has home O2 in place through [employer]. Pt's needs are all met on the ground level. There are 14 steps down to the basement. No hx of services or post acute placement. Pt's PCP is Dr. Maria Elena Lopez. Plan is for pt to discharge home when medically stable. MINA is following to assist as needed with discharge planning.
--- NOTE | 2019-10-11 18:06 | NUR ---
PT IS A&OX3, PT IS CONTINUING O2 2-4L/MIN/NC, PT HAS SOB WITH ACTIVITIES, PT IS CONTINUING PAIN MANAGEMENT AND IV ABX, PT GETS UP TO USE BSC WITH ASSIST, PT 'S FIRST COVID RESULT IS NEGATIVE , PT HAS SECOND COVID TEST AT 1335PM TODAY DUE TO SOB AND COUGHING, CONSULTS HAVE SEEING THE PT, NEW ORDER RECEIVED.
--- NOTE | 2019-10-11 18:13 | NUR ---
PT'S FIRST COVID IS NEGATIVE, PT HAS SECOND COVID TEST 1335 TODAY DUE TO PT'S SOB AND COUGHING.
--- NOTE | 2019-10-11 21:27 | NUR ---
PT WAS PLEASANT DURING THE INITIAL ASSESSMENT. PT STATES HAVING INTENSE PAIN GENERALIZED DUE TO CHRONIC CONDITIONS AND WORSENING PAIN AT THE ABD DUE TO FLUID RETENTION. PT'S LUNG SOUNDS CRACKLY THRU OUT. EVEN THE SLIGHTEST TACTILE PRESSURE SEEMS TO UPSET THE PT, AND EVEN MORE SO AT THE LOWER EXTREMETIES. PT IS AOX4 AND IS COOPERATIVE WITH CARE. PT AGREES TO HAVING AROUND THE CLOCK PAIN MANAGEMENT. PT DID NOT EAT MUCH OF THE DINNER PROVIDED BY DIETARY BUT WANTED A SANDWICH. WILL MONITOR BLOOD SUGAR LEVELS. CAREPLAN, GOALS, FALL RISK, VTE EDUCATION PROVIDED. WILL CONTINUE TO FOLLOW POC AND INTERVENE NECESSARY. CURRENTLY WORKING ON PROVIDING A COMFORTABLE ENVIRONMENT FOR THE PATIENT. USAGE OF BEDPAN IS PREFERRED GIVING PT'S STATUS
[2019-10-12 04:00] VITALS: BP 112/68
[2019-10-12 06:01] LABS: CREATININE 1.4 mg/dL (0.6-1.0); POTASSIUM 3.6 mmol/L (3.5-5.1)
[2019-10-12 08:36] VITALS: BP 111/70
--- NOTE | 2019-10-12 13:18 | NUR ---
SW reviewed chart and spoke with nursing and attending physician. Repeat COVID-19 test is pending. Pt remains on IV abx and 4L O2. Pt may need therapy evals when able to participate and out of Enhanced Isolation. Plan is for pt to discharge home when medically stable. MINA is following to assist as needed with discharge planning.
--- NOTE | 2019-10-12 18:33 | NUR ---
ASSUMED PATIENT CARE AT 0700. A/O X4. PLEASANT. TOLERATED ON 4L/NC. GENERLIZED PAIN. 2ND COVID NEGATIVE. AFEBRILE. PROGRESSING TOWARDS POC GOALS. WILL TRANSFER TO [facility] SOON.
[2019-10-12 19:28] VITALS: BP 102/67
[2019-10-12 21:30] VITALS: BP 115/67
--- NOTE | 2019-10-12 21:41 | NUR ---
Pt alert and oriented x4 . VSS. Afebrile. HRR. Lungs have wheezes throughout. Unlabored on 4LNC. C/o leg and foot pain bilaterally from fibromyalgia and c/o noncardiac chest pain from breathing which she stated is not new. Medicated with 1 hydrocodone. Sleeping pills given as ordered. Pt transferred to 459 with all her belongings accucheck 122. No insulin needed. Notified nurse on 4th floor pt bs hypoactive and pt thinks it may be time for some laxatives since she has not had 1 in a few days. Her abdomen is slightly firm and round. No other s/ distress or c/o, report given to Thuy Doss.
[2019-10-13 04:00] VITALS: BP 143/78
[2019-10-13 06:02] LABS: HEMATOCRIT 32.5 % (37.0-47.0); MCH 22.7 pg (26.0-34.0); MCHC 30.7 g/dL (28.0-37.0); MCV 74.1 fL (80.0-100.0); RBC 4.38 mil/uL (4.20-5.00); RDW 18.1 % (10.5-14.5); WBC 20.4 thou/uL (4.0-11.0)
[2019-10-13 06:23] LABS: CALCIUM 8.2 mg/dL (8.5-10.1); CREATININE 1.2 mg/dL (0.6-1.0); POTASSIUM 3.5 mmol/L (3.5-5.1)
--- NOTE | 2019-10-13 08:00 | NUR ---
RECEIVED PATIENT FROM AT 0. PATIENT ALERT AND ORIENTED X4 WITH PERIODS OF CONFUSION AND FORGETFULLNESS. PATIENT IMPULSIVE. TRIED TO GET UP AND GO OUT TO SMOLE. TOOK TELE LEADS OFF. WENT IN TO TALK WITH PATIENT AND CALM HER DOWN. GLAZIER HELPER WAS CALLED AND AN ORDER FOR A NICADERM PATCH AND SOMETHING FOR ANXIETY WAS OBTAINED. PATCH APPLIED AND MED GIVEN. C/O PAIN, MED GIVEN. RUNS SR ON TELE. SLEPT LITTLE THIS SHIFT.
[2019-10-13] MEDS ORDERED: METOPROLOL SUCC50 MG PO (09:37)
[2019-10-13] MEDS ORDERED: CEFDINIR300 MG PO (11:56)
[2019-10-13] MEDS ORDERED: PREDNISONE 10 M10 M1 PO (11:56)
--- NOTE | 2019-10-13 12:10 | NUR ---
CARE TEAM INDICATED THAT PT IS MEDICALLT STABLE TO DC HOME THIS DAY. PT HAS ORDERS TO DC HOME TO SELF CARE. PT HAD ALL NEEDED DME IN THE HOME. NO OTHER CM INTERVENTION INDICATED. CASE CLOSED.
--- NOTE | 2019-10-13 12:32 | 2DMMODE ---
[facility] [address] [place] [address] 2 D/M-MODE ECHOCARDIOGRAM Name: OG MADDOX Room #: 459-P ADM IN M.R.#: [id number] Admission: 10/11/19 Attend Phys: Oneil Nguyen MD Discharge: Date of : 54 Report #: [id number] THIS REPORT FOR: cc: Maria Elena Lopez Christine L. DO Lammoglia, Francisco J. MD ~ APPROVED REPORT Study performed: 10/13/2019 10:14:30 EXAM: Comprehensive 2D, Doppler, and color-flow Echocardiogram Patient Location: Bedside Room #: 459 Status: routine BSA: 1.65 HR: 98 bpm BP: 115/67 mmHg Rhythm: NSR Other Information Study Quality: Adequate Indications Congestive Heart Failure COPD Dyspnea 2D Dimensions IVSd: 10.42 (7-11mm) LVOT Diam: 23.21 (18-24mm) LVDd: 42.12 mm PWd: 10.15 (7-11mm) Ascending Ao: 34.24 (22-36mm) LVDs: 30.68 (25-40mm) Aortic Root: 30.86 mm IVC: 24.00 mm Volumes Left Atrial Volume (Systole) Single Plane 4CH: 47.36 mL Single Plane 2CH: 47.27 mL LA ESV Index: 31.00 mL/m2 Aortic Valve AoV Peak Rolo.: 1.42 m/s AO Peak Gr.: 8.09 mmHg LVOT Max P.17 mmHg LVOT Max V: 1.02 m/s CONRADO Vmax: 3.04 cm2 [facility] [address] [place] [address] 2 D/M-MODE ECHOCARDIOGRAM Name: OG MADDOX Room #: 459-P [facility] IN ..#: [id number] Admission: 10/11/19 Attend Phys: Oneil Nguyen, Discharge: Date of : 54 Report #: [id number] Mitral Valve E/A Ratio: 1.3 MV Decel. Time: 121.68 ms MV E Max Rolo.: 1.13 m/s MV A Rolo.: 0.90 m/s MV PHT: 35.29 ms IVRT: 96.89 ms Pulmonary Valve PV Peak Rolo.: 0.85 m/s PV Peak Gr.: 2.91 mmHg Pulmonary Vein P Vein S: 0.44 m/s P Vein A: 0.19 m/s P Vein D: 0.43 m/s P Vein A Dur.: 69.2 msec P Vein S/D Ratio: 1.02 Tricuspid Valve TR Peak Rolo.: 3.23 m/s TR Peak Gr.: 41.69 mmHg PA Pressure: 52.00 mmHg Left Ventricle The left ventricle is normal size. There is normal left ventricular wall thickness. The left ventricular systolic function is normal. The left ventricular ejection fraction is within the normal range. LVEF is 60-65%. The left ventricular diastolic function is normal. Right Ventricle The right ventricle is normal size. The right ventricular systolic function is normal. Atria Left atrium is at the upper limits of normal. Right atrium is at the upper limits of normal. Aortic Valve The aortic valve is normal in structure. The Aortic valve is sclerotic. No aortic regurgitation is present. There is no aortic valvular stenosis. Mitral Valve The mitral valve is normal in structure. Trace to mild mitral regurgitation. No evidence of mitral valve stenosis. Tricuspid Valve [facility] [address] [place] [address] 2 D/M-MODE ECHOCARDIOGRAM Name: OG MADDOX Room #: 459-P [facility] IN M.R.#: [id number] Admission: 10/11/19 Attend Phys: Oneil Nguyen, Discharge: Date of : 54 Report #: [id number] The tricuspid valve is normal in structure. There is mild tricuspid regurgitation. Estimated PAP 52 mmHg. There is moderate pulmonary hypertension. Pulmonic Valve The pulmonary valve is normal in structure. There is no pulmonic valvular regurgitation. Great Vessels The aortic root is normal in size. IVC is dilated and collapses <50% with inspiration. Pericardium There is no pericardial effusion. <Conclusion> The left ventricle is normal size. LVEF is 60-65%. The aortic valve is normal in structure. The Aortic valve is sclerotic. The mitral valve is normal in structure. Trace to mild mitral regurgitation. The tricuspid valve is normal in structure. There is mild tricuspid regurgitation. Estimated PAP 52 mmHg. There is moderate pulmonary hypertension. There is no pericardial effusion. <ELECTRONICALLY SIGNED> By: Jorge Flanagan MD 10/13/19 1230 1230 1230 Jorge Flanagan MD /INF
[2019-10-13 13:16] VITALS: BP 115/67
[2019-10-13 14:18] VITALS: BP 115/67
--- NOTE | 2019-10-13 14:53 | NUR ---
ASSUMED CARE OF PATIENT AT 0700. ASSESSMENT COMPLETED. C/O NON CARDIAC CHEST PAIN, RELIEVED WITH HYDROCODONE, DISCOMFORT WITH DEEP BREATH. BLOOD SUGARS ACHS. PATIENT AMBULATING SBA. PATIENT STATES THAT HER PAIN HAS DECREASED FROM WHEN SHE WAS FIRST ADMITTED. SHE BELIEVES THAT SHE IS SIGNIFICANTLY IMPROVED ON ABX AND READY TO GO HOME. DISCHARGE APPROVED. IV AND TELE REMOVED. PATIENT TAKEN TO THE ER ENTRANCE VIA WHEELCHAIR AND DRIVEN HOME BY HER SON. PATIENT STATES THAT SHE HAS ALL OF HER BELONGINGS.
== END 2019-10-13 14:35 | disposition home or self-care (01) | DRG 871 ==
LOC: ER 01:18 → 3W 02:59 → EROBS 02:59 → 3W 04:42 → 4W 10-12 22:17
PROVIDERS: Emergency Medicine; Hospitalist; Nurse Practitioner; ADMIT Internal Medicine
DX: A41.9 Sepsis, unspecified organism (principal); J96.21 Acute and chronic respiratory failure with hypoxia; J90 Pleural effusion, not elsewhere classified; I47.1 Supraventricular tachycardia; J43.9 Emphysema, unspecified; R07.9 Chest pain, unspecified; K58.9 Irritable bowel syndrome, unspecified; M06.9 Rheumatoid arthritis, unspecified; E89.0 Postprocedural hypothyroidism; K21.9 Gastro-esophageal reflux disease without esophagitis; K22.70 Barrett's esophagus without dysplasia; F17.210 Nicotine dependence, cigarettes, uncomplicated; Z20.828 Contact with and (suspected) exposure to other viral communicable diseases; D64.9 Anemia, unspecified; G89.4 Chronic pain syndrome; M79.7 Fibromyalgia; R74.0 Nonspecific elevation of levels of transaminase and lactic acid dehydrogenase [LDH]; G40.909 Epilepsy, unspecified, not intractable, without status epilepticus; M81.0 Age-related osteoporosis without current pathological fracture; Z85.850 Personal history of malignant neoplasm of thyroid; Z92.3 Personal history of irradiation; Z90.710 Acquired absence of both cervix and uterus; Z79.899 Other long term (current) drug therapy; Z79.51 Long term (current) use of inhaled steroids; Z88.6 Allergy status to analgesic agent; Z88.8 Allergy status to other drugs, medicaments and biological substances; Z91.048 Other nonmedicinal substance allergy status; Z80.1 Family history of malignant neoplasm of trachea, bronchus and lung; Z84.0 Family history of diseases of the skin and subcutaneous tissue
CPT/HCPCS: 10047; 10879